=== PATIENT | female | born 1945 | race Caucasian/White ===

== ENCOUNTER 2018-06-30 04:20 | Emergency (ER) | payer MEDICARE, BC ==
[~2018-06-30] VITALS: Ht 167.6 cm; Wt 81.6 kg
[~2018-06-30 04:20] MED LIST: DILT240C2 PO; LEVO100T10 PO; METF500T PO
--- NOTE | 2018-06-30 04:26 | NUR ---
Pt. ambulated into ED w/ c/o weakness/shakiness since x 1 day, pt. has DM and takes metformin but has run out of medication x 2 weeks, BS - 263 fingerstick,
--- NOTE | 2018-06-30 04:31 | NUR ---
at bedside for MSE
[2018-06-30] MEDS ORDERED: IV NORMAL SALINE 1000 ML BAG IV ONE (04:45)
[2018-06-30 05:03] LABS: BASOPHILS % (AUTO) 0.3 % (0.0-2.0); EOSINOPHILS # (AUTO) 0.2 K/uL (0.0-0.7); EOSINOPHILS % (AUTO) 1.1 % (0.0-7.0); HEMATOCRIT 42.8 % (31.2-41.9); HEMOGLOBIN 14.2 g/dL (10.9-14.3); LYMPHOCYTES # (AUTO) 1.9 K/uL (20.0-40.0); MEAN CORPUSCULAR HEMOGLOBIN 28.1 uug (24.7-32.8); MEAN CORPUSCULAR HGB CONC 33 g/dL (32.3-35.6); MEAN CORPUSCULAR VOLUME 84.5 fL (75.5-95.3); MONOCYTES # (AUTO) 1.3 K/uL (2.0-10.0); MONOCYTES % (AUTO) 8.2 % (0.0-11.0); NEUTROPHILS # (AUTO) 12.4 K/uL (1.8-8.9); NEUTROPHILS % (AUTO) 78.4 % (38.5-71.5); PLATELET COUNT (AUTO) 278 K/uL (179-408); RED BLOOD CELL COUNT(AUTO) 5.07 MIL/uL (3.63-4.92); WHITE BLOOD COUNT (AUTO) 15.8 K/uL (3.8-11.8)
[2018-06-30 05:05] LABS: CARBON DIOXIDE 22 mmol/L (21-32); CHLORIDE 98 mmol/L (98-107); CREATININE 1.1 mg/dL (0.6-1.3); GLUCOSE 275 mg/dL (74-106); POTASSIUM 4.4 mmol/L (3.5-5.1); UREA NITROGEN, BLOOD 29 mg/dL (7-18)
[2018-06-30 05:11] LABS: ALANINE AMINOTRANSFERASE 29 U/L (14-59); ALKALINE PHOSPHATASE 88 U/L (50-136); ASPARTATE AMINOTRANSFERASE 14 U/L (15-37); BILIRUBIN,TOTAL 0.3 mg/dL (0.2-1.0); TOTAL PROTEIN, SERUM 7.2 g/dL (6.4-8.2)
[2018-06-30] MEDS ORDERED: METFORMIN HCL 500 MG TABLET ONE ×2 (05:28→05:29)
[2018-06-30] MEDS ORDERED: INSULIN REGULAR, HUMAN 300 UNIT/3 ML VIAL ONE (05:28)
[2018-06-30] MEDS ORDERED: METFORMIN HCL 500 MG TABLET PO ONE (05:30)
[2018-06-30] MEDS ORDERED: INSULIN REGULAR, HUMAN 300 UNIT/3 ML VIAL IV ONE (05:30)
--- NOTE | 2018-06-30 05:40 | NUR ---
Pt. up to use restroom using personal walker for assistance,
--- NOTE | 2018-06-30 05:57 | NUR ---
Patient discharged to home in stable conditon. Written and verbal after care instructions given. Patient verbalizes understanding of instructions. Pt. d/c w/ prescription per MD order, d/c papers signed, all belongings w/ pt., ID/IV removed, ambulated off unit w/ personal walker accompanied by , left in private vehicle, NAD,
== END 2018-06-30 06:12 | disposition home or self-care (01) ==
LOC: ER 04:20
DX: E11.65 Type 2 diabetes mellitus with hyperglycemia (principal); E86.0 Dehydration; I10 Essential (primary) hypertension; E03.9 Hypothyroidism, unspecified; Z90.49 Acquired absence of other specified parts of digestive tract; Z90.89 Acquired absence of other organs; Z79.899 Other long term (current) drug therapy; Z88.1 Allergy status to other antibiotic agents; Z88.5 Allergy status to narcotic agent; Z88.8 Allergy status to other drugs, medicaments and biological substances
CPT/HCPCS: 36415; 80053; 85025; 93005; 96374; 99284; J1815; A4663; J7030

== ENCOUNTER 2018-12-20 17:54 | Emergency (ER) | payer MEDICARE, BC ==
[~2018-12-20] VITALS: Ht 167.6 cm; Wt 81.6 kg
[2018-12-20 18:57] LABS: BASOPHILS # (AUTO) 0.1 K/uL (0.0-8.0); BASOPHILS % (AUTO) 0.7 % (0.0-2.0); EOSINOPHILS # (AUTO) 0.2 K/uL (0.0-0.7); EOSINOPHILS % (AUTO) 1.8 % (0.0-7.0); HEMATOCRIT 40.7 % (31.2-41.9); HEMOGLOBIN 13.7 g/dL (10.9-14.3); LYMPHOCYTES # (AUTO) 2.3 K/uL (20.0-40.0); LYMPHOCYTES % (AUTO) 18.6 % (20.5-51.5); MEAN CORPUSCULAR HEMOGLOBIN 28.9 uug (24.7-32.8); MEAN CORPUSCULAR HGB CONC 34 g/dL (32.3-35.6); MEAN CORPUSCULAR VOLUME 85.8 fL (75.5-95.3); MONOCYTES # (AUTO) 0.7 K/uL (2.0-10.0); MONOCYTES % (AUTO) 5.5 % (0.0-11.0); NEUTROPHILS % (AUTO) 73.4 % (38.5-71.5); PLATELET COUNT (AUTO) 308 K/uL (179-408); RED BLOOD CELL COUNT(AUTO) 4.74 MIL/uL (3.63-4.92); WHITE BLOOD COUNT (AUTO) 12.3 K/uL (3.8-11.8)
[2018-12-20 19:11] LABS: CREATININE 1.2 mg/dL (0.6-1.3); POTASSIUM 4.2 mmol/L (3.5-5.1)
[2018-12-20 19:19] LABS: BILIRUBIN,DIRECT 0.1 mg/dL (0.0-0.2); BILIRUBIN,TOTAL 0.3 mg/dL (0.2-1.0); TOTAL PROTEIN, SERUM 7.5 g/dL (6.4-8.2)
--- NOTE | 2018-12-20 19:32 | NUR ---
[facility] here to see her.
[2018-12-20] MEDS ORDERED: VANCOMYCIN IV 1,000 MG in IV DEXTROSE 5% 250 ML IV ONE (20:15)
[2018-12-20] MEDS ORDERED: VANCOMYCIN IV 200 ML ONE (20:24)
--- NOTE | 2018-12-20 21:34 | NUR ---
Vancomycin continues to infuse to right forearm without any difficulty. Spouse remains at bed side.
--- NOTE | 2018-12-20 22:28 | NUR ---
IV removed. Catheter intact and site benign. Pressure and 4x4 gauze applied to site. No bleeding noted.
--- NOTE | 2018-12-20 22:32 | NUR ---
Patient discharged to home in stable conditon with taking patient home. Written and verbal after care instructions given. Patient verbalizes understanding of instructions. Walked out of ER with no distress noted.
[2018-12-20 22:33] VITALS: BP 148/80
== END 2018-12-20 22:34 | disposition home or self-care (01) ==
LOC: ER 17:56
DX: L03.115 Cellulitis of right lower limb (principal); L03.116 Cellulitis of left lower limb; R60.9 Edema, unspecified; E11.9 Type 2 diabetes mellitus without complications; I10 Essential (primary) hypertension; E03.9 Hypothyroidism, unspecified; Z90.49 Acquired absence of other specified parts of digestive tract; Z90.89 Acquired absence of other organs; Z88.1 Allergy status to other antibiotic agents; Z88.5 Allergy status to narcotic agent; Z79.899 Other long term (current) drug therapy
CPT/HCPCS: 36415; 71045; 73590; 80048; 80076; 83605; 83880; 84484; 85025; 85730; 87040 ×2; 93005; 93970; 96365; 96366; 99284; J3370; 70030-TC; A4663

== ENCOUNTER 2018-12-22 16:24 | Emergency (ER) | payer MEDICARE, BC ==
[~2018-12-22] VITALS: Ht 165.1 cm; Wt 81.6 kg
--- NOTE | 2018-12-22 16:50 | NUR ---
Patient discharged to home in stable conditon. Written and verbal after care instructions given. Patient verbalizes understanding of instructions.pt with
== END 2018-12-22 16:52 | disposition home or self-care (01) ==
LOC: ER 16:24
DX: L03.115 Cellulitis of right lower limb (principal); L03.116 Cellulitis of left lower limb; I10 Essential (primary) hypertension; E11.9 Type 2 diabetes mellitus without complications; E03.9 Hypothyroidism, unspecified; Z88.1 Allergy status to other antibiotic agents; Z88.5 Allergy status to narcotic agent; Z90.49 Acquired absence of other specified parts of digestive tract; Z88.8 Allergy status to other drugs, medicaments and biological substances; Z79.899 Other long term (current) drug therapy
CPT/HCPCS: A4663

== ENCOUNTER 2018-12-31 11:40 | Emergency (ER) | payer MEDICARE, BC ==
[~2018-12-31] VITALS: Ht 165.1 cm; Wt 81.6 kg
--- NOTE | 2018-12-31 12:16 | NUR ---
PATIENT WAS SEEN BY MD. OLMEDO AND FOLLOW UP INSTRUCTIONS GIVEN AND EXPLAINED TO PATIENT WHO STATES SHE UNDERSTANDS ALL INSTRUCTIONS
== END 2018-12-31 12:17 | disposition home or self-care (01) ==
LOC: ER 11:40
DX: Z48.01 Encounter for change or removal of surgical wound dressing (principal); I10 Essential (primary) hypertension; E11.9 Type 2 diabetes mellitus without complications; E03.9 Hypothyroidism, unspecified; Z90.49 Acquired absence of other specified parts of digestive tract; Z90.89 Acquired absence of other organs; Z88.5 Allergy status to narcotic agent; Z88.1 Allergy status to other antibiotic agents; Z88.8 Allergy status to other drugs, medicaments and biological substances; Z79.899 Other long term (current) drug therapy
CPT/HCPCS: A4663

== ENCOUNTER 2021-08-26 12:10 | Emergency (ER) | payer MEDICARE, BC ==
[~2021-08-26] VITALS: Ht 170.2 cm; Wt 106.6 kg
[~2021-08-26 12:10] MED LIST changes: +DILT-3 PO; -DILT240C2 PO
[2021-08-26] MEDS ORDERED: SULF1TAB48 PO (13:14)
[2021-08-26] MEDS ORDERED: CEPH500C2 PO (13:14)
[2021-08-26] MEDS ORDERED: CEphaleXIN 500 MG CAPSULE PO ONE (13:15)
[2021-08-26] MEDS ORDERED: SULFAMETH/TRIMETH 800/160 MG TABLET PO ONE (13:15)
[2021-08-26] MEDS ORDERED: MUPIROCIN 2% OINT 22 GM TUBE TP ONE (13:15)
[2021-08-26] MEDS ORDERED: CEphaleXIN 500 MG CAPSULE ONE (13:22)
[2021-08-26] MEDS ORDERED: MUPIROCIN 2% OINT 22 GM TUBE ONE (13:22)
[2021-08-26] MEDS ORDERED: SULFAMETH/TRIMETH 800/160 MG TABLET ONE (13:23)
--- NOTE | 2021-08-26 13:43 | NUR ---
Patient discharged to home in stable condition. Written and verbal after care instructions given. Patient verbalizes understanding of instructions. Stressed follow up or return to ER for worsening s/s.
--- NOTE | 2021-08-26 13:43 | NUR ---
Patient was seen by
[2021-08-26] MEDS ORDERED: MUPI22OI2 TP (14:30)
== END 2021-08-26 13:51 | disposition home or self-care (01) ==
LOC: ER 12:10
DX: L03.116 Cellulitis of left lower limb (principal); L03.115 Cellulitis of right lower limb; R60.0 Localized edema; I87.393 Chronic venous hypertension (idiopathic) with other complications of bilateral lower extremity; I10 Essential (primary) hypertension; E11.9 Type 2 diabetes mellitus without complications; Z90.49 Acquired absence of other specified parts of digestive tract; E03.9 Hypothyroidism, unspecified; Z96.641 Presence of right artificial hip joint; Z79.4 Long term (current) use of insulin; Z79.890 Hormone replacement therapy
CPT/HCPCS: A4663